=== PATIENT | male | born 1975 | race Caucasian/White ===

== ENCOUNTER 2018-03-01 10:11 | Emergency (ER) | END 2018-03-01 13:00 | disposition home or self-care (01) ==

== ENCOUNTER 2019-03-18 09:48 | Emergency (ER) | payer OTHER ==
[~2019-03-18] VITALS: Ht 175.3 cm; Wt 71.7 kg
[~2019-03-18 09:48] MED LIST: HYDR-3980 PO
[2019-03-18 09:57] VITALS: BP 130/78; PULSE 103; RESP 16; Ht 175.3 cm; Wt 71.7 kg
--- NOTE | 2019-03-18 11:12 | ERD ---
ER Documentation Chief Complaint Chief Complaint FEVERS AND LOSS OF APPETITE X3 DAYS HPI 44-year-old male presents with complaint of fevers loss of appetite for the past 3 days. States that the fevers been up to 102. Has been taking Tylenol for the fever. Last dose was 2 hours ago. States that he is sexually active without condoms. Denies any penile discharge or dysuria. Denies wheezing, dyspnea, stridor, inability to swallow, drooling, rash, neck stiffness, photophobia, abdominal pain, nausea, vomiting, diarrhea, night sweats, recent weight loss, fatigue. ROS All systems reviewed and are negative except as per history of present illness. Medications Home Meds Active Scripts Hydrocodone/Acetaminophen ([place] 10-325 Tablet) 1 Each Tablet, 1 TAB PO Q6H PRN for PAIN, #20 TAB Prov:YONATHAN PANIAGUA DO 03/01/18 Allergies Allergies: Coded Allergies: No Known Allergy (Unverified , 03/18/19) PMhx/Soc Medical and Surgical Hx: pt denies Medical Hx, pt denies Surgical Hx Hx Alcohol Use: No Hx Substance Use: No Hx Tobacco Use: No Smoking Status: Never smoker FmHx Family History: No diabetes, No coronary disease, No other Physical Exam Vitals Vital Signs Date Temp Pulse Resp B/P (MAP) Pulse Ox O2 O2 Flow FiO2 Time Delivery Rate 03/18/19 99.1 103 16 130/78 100 09:57 (95) Physical Exam Const: No acute distress Head: Atraumatic Eyes: Normal Conjunctiva ENT: Normal External Ears, Nose and Mouth. Neck: Full range of motion. No meningismus. Resp: Clear to auscultation bilaterally Cardio: Regular rate and rhythm, no murmurs Abd: Soft, non tender, non distended. Normal bowel sounds Skin: No petechiae or rashes Back: No midline or flank tenderness Ext: No cyanosis, or edema Neur: Awake and alert Psych: Normal Mood and Affect Result Diagram: 03/18/19 1040 03/18/19 1036 Results 24 hrs Laboratory Tests Test 03/18/19 10:36 03/18/19 10:40 03/18/19 10:41 Sodium Level 143 mmol/L Potassium Level 4.2 mmol/L Chloride Level 101 mmol/L Carbon Dioxide Level 27 mmol/L Anion Gap 15 Blood Urea Nitrogen 12 mg/dl Creatinine 0.96 mg/dl Est Glomerular Filtrat > 60 mL/min Rate mL/min Glucose Level 113 mg/dl Calcium Level 9.3 mg/dl Total Bilirubin 1.2 mg/dl Direct Bilirubin 0.00 mg/dl Indirect Bilirubin 1.2 mg/dl Aspartate Amino 58 IU/L Transf (AST/SGOT) Alanine 79 IU/L Aminotransferase (ALT/SGPT) Alkaline Phosphatase 66 IU/L Total Protein 7.5 g/dl Albumin 4.4 g/dl Globulin 3.10 g/dl Albumin/Globulin Ratio 1.41 White Blood Count 11.0 10^3/ul Red Blood Count 5.42 10^6/ul Hemoglobin 15.0 g/dl Hematocrit 45.9 % Mean Corpuscular Volume 84.7 fl Mean Corpuscular Hemoglobin 27.7 pg Mean Corpuscular 32.7 g/dl Hemoglobin Concent Red Cell Distribution Width 14.3 % Platelet Count 396 10^3/UL Mean Platelet Volume 10.1 fl Immature Granulocytes % 0.400 % Neutrophils % 71.0 % Lymphocytes % 15.6 % Monocytes % 9.2 % Eosinophils % 3.0 % Basophils % 0.8 % Nucleated Red Blood Cells % 0.0 /100WBC Immature Granulocytes # 0.040 10^3/ul Neutrophils # 7.8 10^3/ul Lymphocytes # 1.7 10^3/ul Monocytes # 1.0 10^3/ul Eosinophils # 0.3 10^3/ul Basophils # 0.1 10^3/ul Nucleated Red Blood Cells # 0.0 10^3/ul Rapid Plasma Reagin NONREACTIVE Monoscreen Negative Urine Color DARLYN Urine Clarity CLEAR Urine pH 5.0 Urine Specific [place] 1.023 Urine Ketones 2+ mg/dL Urine Nitrite NEGATIVE mg/dL Urine Bilirubin NEGATIVE mg/dL Urine Urobilinogen 1+ mg/dL Urine Leukocyte Esterase NEGATIVE Isis/ul Urine Microscopic RBC 1 /HPF Urine Microscopic WBC 7 /HPF Urine Mucus MODERATE /HPF Urine Hemoglobin NEGATIVE mg/dL Urine Glucose NEGATIVE mg/dL Urine Total Protein 1+ mg/dl Hepatitis B Surface Antigen NEGATIVE Hepatitis C Antibody NEGATIVE HIV (1&2) Antibody NEGATIVE Current Medications Medications Dose Sig/Krista Start Time Status Last (Trade) Ordered Route PRN Stop Time Admin Dose Reason Admin Ceftriaxone 250 mg ONCE ONCE 03/18/19 DC 03/18/19 Sodium IM 13:00 12:52 (Rocephin) 03/18/19 13:01 1,000 mg ONCE ONCE 03/18/19 DC 03/18/19 Azithromycin PO 13:00 12:51 (Zithromax) 03/18/19 13:01 Procedures/MDM MDM: Given patient's admission of unprotected intercourse with multiple women infectious disease panel was performed and all results were negative. In addition Monospot was negative as well as RPR. There were some WBCs seen on the UA so patient will be treated for possible STD with ceftriaxone and azithromycin. To note, I discussed case my supervising physician Dr. Coto and he stated that sepsis work-up would not be needed in this case. I have low suspicion for bacteremia, meningitis, sepsis, or any other emergent condition. At this time, patient is stable for discharge and outpatient management. I have instructed the patient to follow-up with his/her primary care physician in 1-2 days. I have discussed with the patient the possibility of needing to see a specialist for further workup and imaging studies if symptoms persist. I have instructed the patient to promptly return to the ER for any new or worsening symptoms including but not limited to increased pain, fever, nausea, vomiting, weakness or LOC. The patient and/or family expressed understanding of and agreement with this plan. All questions were answered. Home care instructions were provided. DISCLAIMER: Inadvertent spelling and grammatical errors are likely due to EHR/dictation software use and do not reflect on the overall quality of patient care. Also, please note that the electronic time recorded on this note does not necessarily reflect the actual time of the patient encounter. Departure Diagnosis: Primary Impression: Viral syndrome Condition: Stable DAGOORIANAJUAN MANUEL FU Mar 18, 2019 11:12
[2019-03-18] MEDS ORDERED: AZITHROMYCIN 500 MG TAB PO ONE (13:00)
[2019-03-18] MEDS ORDERED: CEFTRIAXONE 250 MG INJ IM ONE (13:00)
== END 2019-03-18 12:57 | disposition home or self-care (01) ==
LOC: FTE 09:48
DX: B34.9 Viral infection, unspecified (principal)
CPT/HCPCS: 71045; 80053; 81001; 85025; 86308; 86592; 86703; 86803; 87086; 87340; 87591; 96372; 99284; J0696